=== PATIENT | female | born 1980 | race Caucasian/White ===

== ENCOUNTER 2021-07-22 08:58 | Outpatient (CLI) | payer BC, SELFPAY ==
--- NOTE | ~2021-07-22 | US_ITS ---
EXAMINATION: US abdomen limited EXAM DATE: 07/22/2021 09:20 INDICATION: RUQ pain TECHNIQUE: Multiple grayscale and Doppler images of the abdomen right upper quadrant were obtained (b y a technologist who performed the scan) and subsequently reviewed. There is no prior study for shayna mcdaniel. FINDINGS: The pancreatic head and body are normal in appearance. The pancreatic tail is not visualized. There is echogenic liver parenchyma, hepatic steatosis. There are no focal liver lesions identified. Th ere is no evidence of intrahepatic biliary duct dilation. Portal venous flow was seen in the hepatop edal, normal direction and has normal Doppler waveform. No right-sided hydronephrosis. Common bile duct measures 6 mm, which is normal. The gallbladder wall mildly thickened at 3-4 mm, wit h expected amount of distention. No sonographic evidence of pericholecystic fluid. There is a galls tone measuring up to 3 cm. Technologist performing exam reports patient did not demonstrate sonograp hic Acosta's sign. Please note that this sign is less reliable in patients who have received pain me dication. IMPRESSION: 1. Cholelithiasis, and mild nonspecific gallbladder wall thickening. No pericholecystic fluid or son ographic Acosta sign demonstrated. If chronic cholecystitis or biliary dysfunction suspected, conside r HIDA scan. 2. Hepatic steatosis. Reviewed, dictated and finalized at location B. IMPRESSION: 1. Cholelithiasis, and mild nonspecific gallbladder wall thickening. No perich olecystic fluid or sonographic Acosta sign demonstrated. If chronic cholecystit is or biliary dysfunction suspected, consider HIDA scan. 2. Hepatic steatosis.
== END 2021-07-22 08:59 | disposition home or self-care (01) ==
LOC: CHSIMG 09:03
PROVIDERS: PCP Physician Assistant; Visit Provider Physician Assistant
DX: R10.11 Right upper quadrant pain (principal)
CPT/HCPCS: 76705